=== PATIENT | male | born 1985 ===

== ENCOUNTER 2020-05-19 09:30 | Outpatient (RCR) | payer BC, SELFPAY ==
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
[2020-05-12 12:49] VITALS: BMI 29.3
--- NOTE | 2020-05-12 13:19 | PC.NURSE ---
Patient is a 34 year old male who was referred by [facility] where patient was admitted d/t mood instability and psychosis. Patient has a dx of Bipolar I disorder, depressed,with psychotic features. Patient was experiencing AH, paranoia, increased agitation, and disorganization. Patient stated AH and paranoia have improved with medication. Reports hearing clicking noises in the house coming from the refrigerator or heat (normal noises inside a house) and thinking the noises were threatening messages meaning certain things were going to happen. Patient stated he is able to reality check with his parents whom he lives with. Patient is alert and oriented x4. Calm and cooperative. Denied Si, HI. Reports AH have improved. No paranoid thoughts noted. Feels more hopeful now that he is attending PHP. Gave verbal permission to email him a copy of his safety plan. Medications reconciled with [facility] d/c list and patient also patient's pharmacy. According to [facility] d/c paperwork patient's Lamictal was d/c'd however patient stated he started taking his previous prescription of lamictal 200 mg BID. Called patients pharmacy and they stated Lamictal was last filled in February and that his prescriber Roel sabillon had cancelled this prescription. Patient also reports he saw his prescriber on Friday and olanzapine was increased-prescription was picked up on 05/10/20 per pharmacy. Pt is also not clear whether he should continue his prn Olanzapine. Dr Degroot is aware of above mentioned medication information.
--- NOTE | 2020-05-15 12:36 | PC.NURSE ---
Amaya Wagoner from [facility] in patient unit called where patient was hospitalized to say that patient is still on Lamictal and that medication was omitted from the discharge paperwork. Stated to have the prescriber here call her at [phone]. Dr Degroot aware. Also patient stated he feels a, slight slowness, very minimal to how he feels overall and before he speaks. Dr Degroot also aware.
--- NOTE | 2020-05-15 12:52 | HO.PHPPROGNO ---
Subjective Subjective Date of Service: 05/15/20 Reason For Visit: Depression Medication Compliance: Yes Side effects from medications: Yes Review of Systems Review of Systems Yes all other systems are reviewed and are negative, unobtainable due to endotracheal tube, Unobtainable due to mental condition, Unobtainable due to mental status and Other Mental Status Exam Mental Status Exam Patient Orientation: Person, Place, Time and Situation Level of Consciousness: Awake Patient Behavior: Appropriate Mood Description: Calm Affect Description: Calm Patient Cognition Impaired: Yes Speech Pattern: Clear Memory Description: Intact Hallucinations: None Delusions: Not Present Thought Process: Intact Thought Content: positive for Intact Judgement: Fair Judgement and Insight: Insight fair Diagnostics Vital Signs (24Hr): Body Mass Index 29.3 Assessment & Plan Assessment & Plan (1) Bipolar 1 disorder, depressed, severe: Status: Acute Code(s): F31.4 - Bipolar disorder, current episode depressed, severe, without psychotic features Assessment and Plan: I called DR. Wagoner and she reported that he should be continue taking Lamictal 200 mg po bid. The patient has been taking Zyprexa 10 am and 30 mg po qhs without side feffects and he wants to keep taking this regimen. No safety issues. Certification I certify that partial hospital treatment is medically necessary due to the symptoms and problems resulting from the patient's mental illness and the failure to treat the patient at the partial hospital level of care would likely result in the patient requiring inpatient psychiatric care which could not be prevented at a less intensive level of care. Greater than 50% of the session was spent on counseling and/or coordination of care Discharge Plan Discharge Attending provider: Shad Chavarria Medications: New lamotrigine [Lamictal] 200 mg tablet 200 mg PO BID Qty: 60 RF: 0 No Action clonazepam 1 mg Tablet 1.5 mg PO BID RF: 0 lithium carbonate 300 mg Capsule 300 mg PO DAILY RF: 0 lithium carbonate 300 mg Capsule 600 mg PO BEDTIME RF: 0 olanzapine 20 mg Tablet 30 mg PO BEDTIME RF: 0 olanzapine 20 mg Tablet 10 mg PO DAILY RF: 0 Telehealth Telehealth Location of provider rendering services: practice address Location of patient: address on file Patient Identification confirmed using: Name, : Yes Telehealth method: voice only Patient verbally consented to treatment: Yes Patient verbally consented to billing insurance company: Yes Patient informed of any privacy concerns related to visit: Yes Time spent with patient (mins): 15
--- NOTE | 2020-05-15 12:53 | PC.NURSE ---
I called Perry Sorto, client's therapist, to inform him of client's attending PHP. The mail box was full and I was unable to leave a message.
--- NOTE | 2020-05-15 14:12 | PC.NURSE ---
Clients case opened in treatment team
--- NOTE | 2020-05-18 14:05 | PC.NURSE ---
I called client to inquie about missing the last group. He states that he was tired and fell asleep and that was also feeling anxious in groups.
--- NOTE | 2020-05-19 12:06 | PC.NURSE ---
Checked in with Cain this morning regarding staff mentioning that Mikael stated he was feeling restless in group yesterday. Patient stated it is related to anxiety and that it has subsided today and it is more of a focusing issue as it is hard to sit in groups all day. Patient also stated he had a panic attack over something that came up in group yesterday and afterwards fell asleep. Patient went on to say that he is having difficulty focusing as he thinks others could be recording the group conversations. Patient stated it is easy to do and all you need to do is push a button. Asked patient if the groups were too triggering for him and he did not seem to think so. Also noted that patient closes his eyes in groups at times and if he was having difficulty staying awake and could it be mediation related. Patient stated it was not d/t his medications as the other night he had some difficulty sleeping the night before however slept ok last night.
--- NOTE | 2020-05-19 12:23 | PC.NURSE ---
I left a message with Perry Sorto informing him of the the clients report that groups are increasing his psychotic symptoms and that he requested to be discharged today. I told him that we are requiring that the client have a set appointment with Dr Coles before discharge and we will be informing Tristin to call crisis or go to the emergency room if he has any thoughts of suicide.
--- NOTE | 2020-05-19 12:27 | PC.NURSE ---
I spoke with the client during lunch at his request. He reports that his paranoid thoughts have increased since he began the program. He states that he has thoughts that he is being watched and that is putting other group members at risk. 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 We talked about prior to being discharged he will need to have an appointment set with his prescriber, Dr Coles. Tristin states he will call him right after we are finished talking.
--- NOTE | 2020-05-22 14:30 | PC.NURSE ---
Case closed in treatment team
== END 2020-05-19 23:55 | disposition home or self-care (01) ==
LOC: HO.PHPA 09:30
PROVIDERS: Visit Provider Psychiatry & Neurology Psychiatry
DX: F31.4 Bipolar disorder, current episode depressed, severe, without psychotic features (principal); Z79.899 Other long term (current) drug therapy
CPT/HCPCS: 90791; 90792; 90853; 99213

== ENCOUNTER 2020-07-25 08:15 | Outpatient (RCR) | payer BC, SELFPAY ==
[2020-07-10 12:45] VITALS: BMI 31.2
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
--- NOTE | 2020-07-10 13:14 | PC.ADMIT ---
Patient is a 35 year old male who was referred from [facility] Inpatient unit where patient was hospitalized d/t increase in AH and paranoid thoughts including hearing clicking and creaking noises thinking the noises were hidden messages threats and commands to kill himself. Patient also having paranoid thoughts related to the TV and internet connections. While hospitalized Latuda was added and patient reports good effect from the medication. Patient reports increased anxiety. Patient is alert and oriented x45. Calm and cooperative. Presents with anxious tired affect. Stated he woke up at 3 am this morning and could not get back to sleep as he was anxious about starting the program today. Denied Si, AH, VH, or paranlid thoughts. Denied hearing clicking or creaking noises. Patient gave permission to email him a copy of his safety plan. Medications reconciled with patient and [facility] d/c medication list. Patient reports taking medications as prescribed.
--- NOTE | 2020-07-11 11:16 | PC.NURSE ---
Staff report that patient appeared sedated in group. I called patient and patient was slurring his words at times and was difficult to understand at times. Patient reported that he feels he is in a weird place. I asked if his parents were home and patient stated they are there in the spiritual sense not in the physical sense. I asked patient if he over took his medications, patient denied. Called patient's mother whom is patients emergency contact to ask her to check on patient however she is in [place] with her visiting with family and that she can have a neighbor check on him. I told her I am calling an ambulance as I was concerned about his mental status/presentation and she agreed. I called [place] [employer] department and told them of the above patient presentation along with medications patient is on and that he was recently discharged from the hospital and am requesting an ambulance to check out patient medically and psychiatrically. I called Mikael and let him know medics and police where going to check on him and told him my concerns and he agreed. I asked him again if he could have overtaken his medications and he stated he thinks he may have overtaken them. Police arrived at patient's home and I let them know that patient told me he may have overtaken his medications.
--- NOTE | 2020-07-11 12:14 | PC.NURSE ---
I called the [place] police to f/u on patient disposition. Patient transported to [facility] for evaluation.
--- NOTE | 2020-07-12 10:55 | PC.NURSE ---
Spoke to patient this morning. He stated he went to the ER and they gave him NS via IV as he was dehydrated. Patient presents alert and oriented, no confusion, no sedation. Stated he feels much better. Educated patient on the importance of hydration especially while on prescription medication including [place]. Dr. Degroot is aware.
--- NOTE | 2020-07-19 13:21 | P.PNPSP_ITS ---
Subjective Subjective Date of Service: 07/19/20 Reason For Visit: Schizoaffective d/o Interim History: The patient reported that he is doing fine. He accidentally took extra Zyprexa a few days ago and he was sent to the ER when our staff realized that he was oversedated in the groups. Currently he is doing well, no evidence of psychotic symptoms, he denies any paranoia. We received a fax from his prescriber, Dr. Roel Coles and apparently, he should be taking Latuda 100 mg, Zyprexa 15 mg po qhs, [place] [place] 300 qam and 600 qhs and Klnopin 1.5 bid Medication Compliance: Yes Mental Status Exam Mental Status Exam Patient Appearance: Well Grooomed Patient Orientation: Person, Place, Time and Situation Level of Consciousness: Awake and Appropriate Patient Behavior: Appropriate Mood Description: Calm Affect Description: Calm Patient Cognition Impaired: No Ability to Follow Directions: Good Speech Pattern: Clear Memory Description: Intact Hallucinations: None Delusions: Not Present Thought Process: Goal Oriented Thought Content: positive for Intact Judgement: Fair Diagnostics Vital Signs (24Hr): Body Mass Index 31.2 Assessment & Plan Assessment & Plan (1) Schizoaffective disorder: Status: Acute Code(s): F25.9 - Schizoaffective disorder, unspecified Assessment and Plan: Adult male with Schizoaffective disorder, with 2 previous admissions in the last months, fairly stable with the current regimen. Plan: Keep same treatment. Certification I certify that partial hospital treatment is medically necessary due to the symptoms and problems resulting from the patient's mental illness and the failure to treat the patient at the partial hospital level of care would likely result in the patient requiring inpatient psychiatric care which could not be prevented at a less intensive level of care. Greater than 50% of the session was spent on counseling and/or coordination of care Discharge Plan Discharge Attending provider: Vincent Degroot Primary Care Provider: Lobo Cheek Medications: No Action clonazepam 1 mg Tablet 1.5 mg PO BID RF: 0 lithium carbonate 300 mg Capsule 300 mg PO DAILY RF: 0 lithium carbonate 300 mg Capsule 600 mg PO BEDTIME RF: 0 lamotrigine [Lamictal] 200 mg tablet 200 mg PO BID Qty: 60 RF: 0 olanzapine 5 mg Tablet 5 mg PO BID PRN (Reason: Anxiety) RF: 0 olanzapine 15 mg Tablet 15 mg PO BEDTIME RF: 0 lorazepam 1 mg Tablet 1 mg PO BID PRN (Reason: Anxiety) RF: 0 lurasidone 80 mg Tablet 80 mg PO DAILY RF: 0 Referrals: Lobo Cheek MD [Primary Care Provider] - 1 Week Telehealth Telehealth Location of provider rendering services: practice address Location of patient: address on file Patient Identification confirmed using: Name, : Yes Telehealth method: video Patient verbally consented to treatment: Yes Patient verbally consented to billing insurance company: Yes Patient informed of any privacy concerns related to visit: No Time spent with patient (mins): 15
--- NOTE | 2020-07-25 12:00 | HO.PHPPROGNO ---
Subjective Subjective Date of Service: 07/25/20 Reason For Visit: Schizoaffective d/o Medical Problems Affecting Mental Status: No Interim History: Cain reports that he has been doing well. He feels that he has gained a lot from participating in the various groups in the partial program. No evidence of psychotic symptoms observed, and he denies any paranoia. He says he is in close contact with his outpatient psychiatrist regarding his medications, and that he is currently stable regarding them. He does not need any medication refills at this time. Today is Cain's final day of partial program. He feels stable and ready to complete program. Medication Compliance: Yes Side effects from medications: No Attending Groups: Yes Review of Systems Comments: Overall feeling well / stable, offers no complaints. Eyes: Reports irritation Comments: Reports some irritation related to using computer monitor, states it is minimal, goes away with breaks from using computer. Reports Normal hearing present Reports Normal hearing present Comments: Denies any type of paranoia or psychotic thought. Mental Status Exam Mental Status Exam Patient Appearance: Well Grooomed and Appropriate Patient Orientation: Person, Place, Time and Situation Level of Consciousness: Awake and Appropriate Patient Behavior: Appropriate and Cooperative Mood Description: Calm and Appropriate Affect Description: Calm, Appropriate and Relaxed Patient Cognition Impaired: No Ability to Follow Directions: Excellent Speech Pattern: Clear and Appropriate Memory Description: Intact Hallucinations: None Delusions: Not Present Thought Process: Intact Thought Content: positive for Intact Judgement: Good Judgement and Insight: Judgment and insight grossly intact. Diagnostics Vital Signs (24Hr): Body Mass Index 31.2 Assessment & Plan Patient educated on: therapeutic strategies Informed Consent: understands Reason for contiued partial hosp. stay Substantial Risk for: stable for discharge Certification Today is patient's final day of partial hospitalization program. No medication changes. I certify that partial hospital treatment is medically necessary due to the symptoms and problems resulting from the patient's mental illness and the failure to treat the patient at the partial hospital level of care would likely result in the patient requiring inpatient psychiatric care which could not be prevented at a less intensive level of care. Greater than 50% of the session was spent on counseling and/or coordination of care Discharge Plan Discharge Attending provider: Vincent Degroot Primary Care Provider: Lobo Cheek Additional Instructions: Patient working with outpatient psychiatrist regarding cross-taper of olanzapine and latuda. Medications: No Action clonazepam 1 mg Tablet 1.5 mg PO BID RF: 0 lithium carbonate 300 mg Capsule 300 mg PO DAILY RF: 0 lithium carbonate 300 mg Capsule 600 mg PO BEDTIME RF: 0 lamotrigine [Lamictal] 200 mg tablet 200 mg PO BID Qty: 60 RF: 0 olanzapine 15 mg Tablet 15 mg PO BEDTIME RF: 0 Latuda 80 mg Tablet 80 mg PO QPM RF: 0 Latuda 20 mg Tablet 20 mg PO QPM RF: 0 Referrals: Lobo Cheek MD [Primary Care Provider] - 1 Week Stand Alone Forms: Patient Portal Discharge page Telehealth Telehealth Location of provider rendering services: practice address Location of patient: address on file Patient Identification confirmed using: Name, : Yes Telehealth method: video Patient verbally consented to treatment: Yes Patient verbally consented to billing insurance company: Yes Patient informed of any privacy concerns related to visit: Yes Time spent with patient (mins): 15
--- NOTE | 2020-07-25 12:11 | PC.NURSE ---
Patient is being discharged from the [facility] today. Reviewed patient discharge medications and medication changes made by patient's outpatient prescriber Roel Coles MD. According to patient and documentation faxed from Roel Coles MD's office patient is no longer on Lorazepam and PRN Olanzapine and increased Latuda from 80 mg to 100 mg daily. Patient reports taking medication as prescribed. Dr Degroot and Berenice rincon. Will update Medication Reconciliation.
--- NOTE | 2020-07-25 13:35 | PC.NURSE ---
I called and left a message with the clients therapist, Perry leiva clients dc from [facility].
== END 2020-07-26 07:37 | disposition home or self-care (01) ==
LOC: HO.PHPA 08:15
PROVIDERS: PCP Internal Medicine; Visit Provider Psychiatry & Neurology Psychiatry
DX: F25.0 Schizoaffective disorder, bipolar type (principal); Z79.899 Other long term (current) drug therapy
CPT/HCPCS: 90791; 90853; 99212